=== PATIENT | female | born 1935 | race Caucasian/White ===

== ENCOUNTER 2018-03-18 17:47 | Inpatient (IN) | payer MEDICARE, OTHER ==
--- NOTE | 2018-03-18 17:55 | ED Physician Chart ---
ED Chief Complaint/HPI - Patient Information Date Seen:: 03/18/18 Time Seen:: 17:35 Chief Complaint:: Fever History of Present Illness:: onset x 2 days of fever, poor oral intake, cough, and congestion; no report of trauma, H/As, S/T, neck pain, C/P, SOB, Abd. Pain, A/N/V/D/C, chills, or urinary s/s Allergies:: Allergies Allergy/AdvReac Type Severity Reaction Status Date / Time ciprofloxacin [From Cipro] Allergy Verified 03/18/18 17:50 codeine Allergy Verified 03/18/18 17:50 naproxen Allergy Verified 03/18/18 17:50 tetracycline Allergy Verified 03/18/18 17:50 Historian:: Patient Review:: Nurse's Note Reviewed, Old Chart Reviewed, EMS run form Reviewed ED Review of Systems - Review of Systems General/Constitutional: Fever, No chills, No weight loss, Weakness, No diaphoresis, No edema, No loss of appetite Skin: No skin lesions, No rash, No bruising Head: No headache, No light-headedness Eyes: No loss of vision, No pain, No diplopia ENT: No earache, Nasal drainage, No sore throat, No tinnitus Neck: No neck pain, No swelling, No thyromegaly, No stiffness, No mass noted Cardio Vascular: No chest pain, No palpitations, No PND, No orthopnea, No edema Pulmonary: No SOB, Cough, No sputum, No wheezing GI: No nausea, No vomiting, No diarrhea, No pain, No melena, No hematochezia, No constipation, No hematemesis G/U: No dysuria, No frequency, No hematuria, No nacturia [employer]: No vaginal discharge, No abnormal vaginal bleed, No contraction Musculoskeletal: No bone or joint pain, No back pain, No muscle pain Endocrine: No polyuria, No polydipsia Psychiatric: No prior psych history, No depression, No anxiety, No suicidal ideation, No homicidal ideation, No auditory hallucination, No visual hallucination Hematopoietic: No bruising, No lymphadenopathy Allergic/Immuno: No urticaria, No angioedema Neurological: No syncope, No focal symptoms, Weakness, No paresthesia, No headache, No seizure, No dizziness, Confusion, No vertigo ED Past Medical History - Past Medical History Obtainable: Yes Past Medical History: HTN, Asthma/COPD, Dementia Family History: HTN Social History: Non Smoker, No Alcohol, No Drug Use, , Care Facility Surgical History: None Psychiatricy History: Dementia Medication: Reviewed Family Medical History - Family Member Mother History Unknown: Yes ED Physical Exam - Physical Examination General/Constitutional: Awake, Well-developed, well-nourished, Alert, No distress, GCS 15, Non-toxic appearing, Ambulatory Head: Atraumatic Eyes: Lids, conjuctiva normal, PERRL, EOMI Skin: Nl inspection, No rash, No skin lesions, No ecchymosis, Well hydrated, No lymphadenopathy ENMT: External ears, nose nl, TM canals nl, Nasal exam nl, Lips, teeth, gums nl , Oropharynx nl, Tonsils nl Neck: Nontender, Full ROM w/o pain, No JVD, No nuchal rigidity, No bruit, No mass, No stridor Respiratory: Nl effort/Exclusion, Clear to Auscultation, No Wheeze/Rhonchi/Rales Cardio Vascular: RRR, No murmur, gallop, rubs, NL S1 S2, Carotid/Femoral/Distal pulses equal bilaterally GI: No tenderness/rebounding/guarding, No organomegaly, No hernia, Normal BS's, Nondistended, No mass/bruits, No McBurney tenderness, Rectum exam nl : No CVA tenderness Extremities: No tenderness or effusion, Full ROM, normal strength in all extremities, No edema, Normal digits & nails Neuro/Psych: Alert/oriented, DTR's symmetric, Normal sensory exam, Normal motor strength, Judgement/insight normal, Mood normal, Normal gait, No focal deficits Misc: Normal back, No paraspinal tenderness ED Labs/Radiology/EKG Results - Lab Results Comments:: Reviewed - Radiology Results Comments:: COPD - EKG Interpretations Rate & Rhythm: NSR Comments:: non-specific st-t changes ED Septic Shock - . Is Septic Shock (SBP<90, OR Lactate>4 mmol\L) present?: No ED Reassessment (Disposition) - Reassessment Reassessment Condition:: Improved - Diagnosis Diagnosis:: Poor Oral Intake; Failure to Thrive; fever; Cough; Congestion; Dementia; Dehydration; Sepsis; UTI - Aftercare/Follow up Instructions Aftercare/Follow-Up Instructions:: Counseled pt regarding lab results/diagnosis & need follow up, Counseled pt & family regarding lab results/diagnosis & need follow up - Patient Disposition Discharge/Transfer:: Acute Care w/in this hosp Accepting Physician:: Dr. Nugent Time Called:: 1899 Time Responded:: 19:00 Admitted to:: Telemetry Spoke to:: Dr. Nugent Admitting Medical Physician:: Dr. Nugent Condition at Disposition:: Stable, Improved
[2018-03-18 18:27] LABS: URINE SOURCE MIDSTREAM
[2018-03-18 18:30] LABS: % BASOPHILS 0.5 % (0.0-2.0); % EOSINOPHILS 4.5 % (0.0-5.0); % LYMPHOCYTES 22.9 % (20.0-50.0); % MONOCYTES 13.5 % (2.0-10.0); % NEUTROPHILS 58.6 % (40.0-80.0); EOSINOPHILE ABSOLUTE 0.3 Th/cmm (0.1-0.4); HEMATOCRIT 38.2 % (41.0-60); HEMOGLOBIN 12.3 gm/dL (12-16); LYMPHOCYTE ABSOLUTE 1.7 Th/cmm (1.5-3.0); MEAN CELL VOLUME 81.5 fl (81-100); MEAN CORPUSCULAR HEMOGLOBIN 26.3 pg (27.0-31.0); MEAN CORPUSCULAR HGB CONC 32.3 pg (28.0-36.0); MEAN PLATELET VOLUME 7.7 fl; NEUTROPHILE ABSOLUTE 4.5 Th/cmm (1.8-8.0); PLATELET COUNT 294 Th/cmm (150-400); RED BLOOD COUNT 4.69 Mil/cmm (3.80-5.20); RED CELL DISTRIBUTION WIDTH 16.8 % (11.5-20.0); WHITE BLOOD COUNT 7.5 Th/cmm (4.8-10.8)
[2018-03-18 18:42] LABS: URINE BILIRUBIN NEGATIVE (NEGATIVE); URINE BLOOD NEGATIVE (NEGATIVE); URINE GLUCOSE (UA) NEGATIVE (NEGATIVE); URINE KETONE TRACE mg/dL (NEGATIVE); URINE LEUKOCYTE ESTERASE MODERATE (NEGATIVE); URINE MICROSCOPIC INDICATED? YES; URINE NITRATE NEGATIVE (NEGATIVE); URINE PH 5.5 (4.6 - 8.0); URINE PROTEIN TRACE mg/dL (NEGATIVE); URINE UROBILINOGEN 0.2 E.U./dL (0.2 - 1.0)
[2018-03-18 18:44] LABS: URINE CLARITY CLEAR (CLEAR); URINE COLOR YELLOW
[2018-03-18 18:50] LABS: ALB/GLOB RATIO 1.2 (1.0-1.8); ALBUMIN 3.5 gm/dL (3.7-5.3); ALKALINE PHOSPHATASE 86 U/L (34-104); ANION GAP 10.7 (7.0-16.0); BILIRUBIN,TOTAL 0.2 mg/dL (0.3-1.0); BUN - UREA NITROGEN 30 mg/dL (7-25); CALCIUM SERUM 9.5 mg/dL (8.6-10.3); CARBON DIOXIDE 26.8 mEq/L (21.0-31.0); CHLORIDE 102 mEq/L (98-107); CREATININE - SERUM 0.8 mg/dL (0.6-1.2); CREATININE KINASE 31 U/L (30-223); GLUCOSE 91 mg/dL (70-105); POTASSIUM SERUM 4.5 mEq/L (3.5-5.1); SGOT 16 U/L (13-39); SGPT/ALT 12 U/L (7-52); SODIUM SERUM 135 mEq/L (136-145); TOTAL PROTEIN,SERUM 6.5 gm/dL (6.0-8.3)
[2018-03-18 18:52] LABS: TROP I 0.01 ng/mL (0.01-0.05)
[2018-03-18 18:58] LABS: URINE BACTERIA 1+ /hpf (NONE SEEN); URINE EPITHELIAL CELLS FEW /lpf (FEW); URINE RBC 0-2 /hpf (0-5)
[2018-03-18] MEDS ORDERED: cefTRIAXone 1 GM in Sodium Chloride 0.9% 50 ML IV ONE (19:14)
[2018-03-18 19:31] LABS: INR 0.96 (0.5-1.4)
[2018-03-18 21:48] VITALS: BP 159/84
[2018-03-18] MEDS: Sodium Chloride 0.9% 1,000 ML IV SCH (22:49)
--- NOTE | 2018-03-19 08:24 | Diagnostic Imaging Report ---
Portable chest x-ray HISTORY: Pain The overall heart size is difficult to assess with portable technique, a poor inspiration, and patient rotation. A linear density is seen in the right perihilar region which may be associated with scarring or subsegmental atelectasis. No other focal processes. Atherosclerotic calcification seen through the aorta. IMPRESSION: 1. Linear density within the right perihilar region that may be associated with scarring or subsegmental atelectasis 2. Atherosclerotic vascular changes
[2018-03-19] MEDS ORDERED: Non-Formulary Item 1 EA (Nutritional Supplement [Resource 2.0] 90 ML) PO SCH (09:15)
--- NOTE | 2018-03-19 09:35 | History and Physical ---
History of Present Illness - HPI Chief Complaint: Failure to thrive, poor oral intake. HPI: I follow this patient at a SNF and I received a call stating that patient had 2 days with fever, poor oral intake. Patient was send to ER and was found an UTI. Vital Signs: Last Vital Signs Temp 98.1 F 03/19/18 08:00 Pulse 78 03/19/18 08:00 Resp 17 03/19/18 08:00 BP 133/85 03/19/18 08:00 Pulse Ox 96 03/19/18 08:00 Past Medical History Cardiovascular: Report: CAD, HTN Pulmonary: Report: COPD [employer]: Report: Dementia GI: Report: No Pertinent Hx Psych: Report: No Pertinent Hx Musculoskeletal: Report: Weakness Rheumatologic: Report: No pertinent Hx Infectious Disease: Report: No Pertinent Hx Renal/: Report: No Pertinent Hx Endocrine: Report: No Pertinent Hx Dermatology: Report: No Pertinent Hx Family Medical History - Family Member Mother History Unknown: Yes Social History Smoke: No Alcohol: None Drugs: None Lives: Group Home Domestic Violence: Negative - Medications Home Medications: Home Medication Medication Instructions Recorded Type Acetaminophen [Tylenol] 650 mg PO Q6HR PRN 03/18/18 History Ascorbic Acid [Vitamin C] 500 mg PO DAILY 03/18/18 History Folic Acid [Folate*] 1 mg PO DAILY 03/18/18 History Melatonin 6 mg PO HS 03/18/18 History Memantine [Namenda] 5 mg PO BID 03/18/18 History Multivitamin with Minerals 1 tab PO DAILY 03/18/18 History [Multivitamins with Minerals] Nutritional Supplement [Resource 90 ml PO TID 03/18/18 History 2.0] Sennosides A and B [Senna] 8.6 mg PO HS PRN 03/18/18 History Trazodone HCl 50 mg PO HS PRN 03/18/18 History cefTRIAXone [Rocephin] 1 gm IV Q24HR 4 Days vial 03/20/18 Rx - Allergies Allergies/Adverse Reactions: Allergies Allergy/AdvReac Type Severity Reaction Status Date / Time ciprofloxacin [From Cipro] Allergy Verified 03/18/18 17:50 codeine Allergy Verified 03/18/18 17:50 naproxen Allergy Verified 03/18/18 17:50 tetracycline Allergy Verified 03/18/18 17:50 Review of Systems - Review of Systems Constitutional: Report: Fever, Weakness Eyes: Report: No Significant ENT: Report: No Significant Respiratory: Report: Other (Bilateral decreased air entry) Cardiovascular: Report: No Significant Gastrointestinal: Report: No Significant Genitourinary: Report: No Significant Musculoskeletal: Report: No Significant Skin: Report: No Significant Neurological: Report: Weakness Physical Exam - Physical Exam HEENT: Report: Ears Nose Throat within normal limits Neck: Report: Within normal limits Cardiovascular Systems: Report: Regular, Rate and Rhythm Respiratory: Report: Other (Bilateral decreased air entry) Abdomen: Report: Non-tender to palpation Back: Report: Inspection of back is within normal limits. Extremities: Report: Non-tender to palpation. Skin: Report: Color of skin is within normal limits Neuro/Psych: Report: Disoriented to name time or place - Lab Results All Lab Results last 24 hours: Laboratory Results - last 24 hr 03/18/18 03/18/18 03/18/18 18:20 18:20 18:20 WBC 7.5 RBC 4.69 Hgb 12.3 Hct 38.2 L MCV 81.5 MCH 26.3 L MCHC Differential 32.3 RDW 16.8 Plt Count 294 MPV 7.7 Neutrophils % 58.6 Lymphocytes % 22.9 Monocytes % 13.5 H Eosinophils % 4.5 Basophils % 0.5 PT 10.0 INR 0.96 PTT (Actin FS) 23.0 L Sodium Potassium Chloride Carbon Dioxide Anion Gap BUN Creatinine Est GFR ( Amer) Est GFR (Non-Af Amer) BUN/Creatinine Ratio Glucose Whole Bld Lactic Acid Calcium Total Bilirubin AST ALT Alkaline Phosphatase Creatine Kinase Troponin I B-Natriuretic Peptide Total Protein Albumin Globulin Albumin/Globulin Ratio Urine Source [place] Urine Color YELLOW Urine Clarity CLEAR Urine pH 5.5 Ur Specific [place] 1.025 Urine Protein TRACE Urine Glucose (UA) NEGATIVE Urine Ketones TRACE Urine Blood NEGATIVE Urine Nitrate NEGATIVE Urine Bilirubin NEGATIVE Urine Urobilinogen 0.2 Ur Leukocyte Esterase MODERATE H Urine RBC 0-2 Urine WBC 6-10 H Ur Epithelial Cells FEW Urine Bacteria 1+ H 03/18/18 03/18/18 03/18/18 18:20 18:20 18:20 WBC RBC Hgb Hct MCV MCH MCHC Differential RDW Plt Count MPV Neutrophils % Lymphocytes % Monocytes % Eosinophils % Basophils % PT INR PTT (Actin FS) Sodium 135 L Potassium 4.5 Chloride 102 Carbon Dioxide 26.8 Anion Gap 10.7 BUN 30 H Creatinine 0.8 Est GFR ( Amer) TNP Est GFR (Non-Af Amer) TNP BUN/Creatinine Ratio 37.5 Glucose 91 Whole Bld Lactic Acid 0.91 Calcium 9.5 Total Bilirubin 0.2 L AST 16 ALT 12 Alkaline Phosphatase 86 Creatine Kinase 31 Troponin I 0.01 B-Natriuretic Peptide 61.1 Total Protein 6.5 Albumin 3.5 L Globulin 3.0 Albumin/Globulin Ratio 1.2 Urine Source Urine Color Urine Clarity Urine pH Ur Specific [place] Urine Protein Urine Glucose (UA) Urine Ketones Urine Blood Urine Nitrate Urine Bilirubin Urine Urobilinogen Ur Leukocyte Esterase Urine RBC Urine WBC Ur Epithelial Cells Urine Bacteria - Assessment Assessment: Patient is awake, alert, calm, in no acute distress. Dx: UTI, Failure to thrive , COPD, HTN, Dementia. - Plan Plan: Patient in IV NS, Ceftriaxone, continue with SNF meds. Will continue to monitor.
[2018-03-19] MEDS: Multivitamin w/ Minerals Tab PO SCH (10:05)
[2018-03-19] MEDS: Sodium Chloride 0.9% 1,000 ML IV SCH (10:07)
[2018-03-19] MEDS: Albuterol Nebulizer 2.5mg/3mL HHN SCH ×2 (13:52→19:41)
[2018-03-19] MEDS ORDERED: cefTRIAXone 1 GM in Sodium Chloride 0.9% 50 ML IV SCH (19:30)
[2018-03-20] MEDS: Sodium Chloride 0.9% 1,000 ML IV SCH ×2 (00:38→00:45)
[2018-03-20] MEDS: Albuterol Nebulizer 2.5mg/3mL HHN SCH ×2 (01:40→07:42)
[2018-03-20 05:42] LABS: % BASOPHILS 0.6 % (0.0-2.0); % EOSINOPHILS 2.1 % (0.0-5.0); % LYMPHOCYTES 10.9 % (20.0-50.0); % MONOCYTES 11.6 % (2.0-10.0); % NEUTROPHILS 74.8 % (40.0-80.0); EOSINOPHILE ABSOLUTE 0.2 Th/cmm (0.1-0.4); HEMATOCRIT 34.8 % (41.0-60); HEMOGLOBIN 11.6 gm/dL (12-16); LYMPHOCYTE ABSOLUTE 0.9 Th/cmm (1.5-3.0); MEAN CELL VOLUME 80.7 fl (81-100); MEAN CORPUSCULAR HEMOGLOBIN 26.9 pg (27.0-31.0); MEAN CORPUSCULAR HGB CONC 33.3 pg (28.0-36.0); MEAN PLATELET VOLUME 7.6 fl; NEUTROPHILE ABSOLUTE 6.1 Th/cmm (1.8-8.0); PLATELET COUNT 238 Th/cmm (150-400); RED BLOOD COUNT 4.31 Mil/cmm (3.80-5.20); RED CELL DISTRIBUTION WIDTH 16.6 % (11.5-20.0); WHITE BLOOD COUNT 8.2 Th/cmm (4.8-10.8)
[2018-03-20 05:53] LABS: ALB/GLOB RATIO 1.2 (1.0-1.8); ALBUMIN 3.1 gm/dL (3.7-5.3); ALKALINE PHOSPHATASE 78 U/L (34-104); ANION GAP 11.7 (7.0-16.0); BILIRUBIN,TOTAL 0.2 mg/dL (0.3-1.0); BUN - UREA NITROGEN 14 mg/dL (7-25); CALCIUM SERUM 9.2 mg/dL (8.6-10.3); CARBON DIOXIDE 24.4 mEq/L (21.0-31.0); CHLORIDE 103 mEq/L (98-107); CREATININE - SERUM 0.6 mg/dL (0.6-1.2); GLUCOSE 90 mg/dL (70-105); POTASSIUM SERUM 4.1 mEq/L (3.5-5.1); SGOT 16 U/L (13-39); SGPT/ALT 10 U/L (7-52); SODIUM SERUM 135 mEq/L (136-145); TOTAL PROTEIN,SERUM 5.8 gm/dL (6.0-8.3)
--- NOTE | 2018-03-20 08:46 | Discharge Summary ---
General Discharge Summary - Discharge Summary Date of Admission: 03/18/18 Admitting Diagnosis: UTI, Failure to thrieve Discharge Date: 03/20/18 Discharge Diagnosis: UTI, Poor oral intake, COPD, HTN, Dementia Laboratory Findings: Laboratory Results - last 24 hr 03/20/18 03/20/18 05:00 05:00 WBC 8.2 RBC 4.31 Hgb 11.6 L Hct 34.8 L MCV 80.7 L MCH 26.9 L MCHC Differential 33.3 RDW 16.6 Plt Count 238 MPV 7.6 Neutrophils % 74.8 Lymphocytes % 10.9 L Monocytes % 11.6 H Eosinophils % 2.1 Basophils % 0.6 Sodium 135 L Potassium 4.1 Chloride 103 Carbon Dioxide 24.4 Anion Gap 11.7 BUN 14 Creatinine 0.6 Est GFR ( Amer) TNP Est GFR (Non-Af Amer) TNP BUN/Creatinine Ratio 23.3 Glucose 90 Calcium 9.2 Total Bilirubin 0.2 L AST 16 ALT 10 Alkaline Phosphatase 78 Total Protein 5.8 L Albumin 3.1 L Globulin 2.7 Albumin/Globulin Ratio 1.2 Hospital Course: Patient was hospitalized and responded to treatment, patient improved . Treatment: Patient was started in IV NS, Ceftriaxone, continue with SNF meds. Disposition: Discharge/Transfered to SNF Home Medications: Home Medication Medication Instructions Recorded Type Acetaminophen [Tylenol] 650 mg PO Q6HR PRN 03/18/18 History Ascorbic Acid [Vitamin C] 500 mg PO DAILY 03/18/18 History Folic Acid [Folate*] 1 mg PO DAILY 03/18/18 History Melatonin 6 mg PO HS 03/18/18 History Memantine [Namenda] 5 mg PO BID 03/18/18 History Multivitamin with Minerals 1 tab PO DAILY 03/18/18 History [Multivitamins with Minerals] Nutritional Supplement [Resource 90 ml PO TID 03/18/18 History 2.0] Sennosides A and B [Senna] 8.6 mg PO HS PRN 03/18/18 History Trazodone HCl 50 mg PO HS PRN 03/18/18 History cefTRIAXone [Rocephin] 1 gm IV Q24HR 4 Days vial 03/20/18 Rx Inpatient Medications: Current Medications Acetaminophen (Tylenol) 650 mg PO Q6H PRN PRN Reason: pain/headache/fever 101 Stop: 05/18/18 03:10 Last Admin: 03/19/18 03:19 Dose: 650 mg Albuterol Sulfate (Albuterol 2.5mg/3ml Neb Ud) 2.5 mg HHN Q6HRT [facility] Stop: 05/18/18 12:59 Last Admin: 03/20/18 07:42 Dose: 2.5 mg Ascorbic Acid (Vitamin C) 500 mg PO DAILY [facility] Stop: 05/18/18 09:14 Last Admin: 03/19/18 10:05 Dose: 500 mg Folic Acid (Folate) 1 mg PO DAILY [facility] Stop: 05/18/18 09:14 Last Admin: 03/19/18 10:05 Dose: 1 mg Ceftriaxone Sodium 1 gm/ (Sodium Chloride) 50 mls @ 100 mls/hr IV Q24HR [facility] Stop: 03/25/18 19:59 Last Admin: 03/19/18 18:44 Dose: 100 mls/hr Sodium Chloride (Nacl 0.9%) 1,000 mls @ 80 mls/hr IV .[id number] [facility] Stop: 05/17/18 19:28 Last Admin: 03/20/18 00:45 Dose: Not Given Memantine (Namenda) 5 mg PO BID [facility] Stop: 05/18/18 09:14 Last Admin: 03/19/18 17:34 Dose: 5 mg Senna (Senna) 8.6 mg PO HS PRN PRN Reason: Constipation Stop: 05/18/18 09:13 Trazodone HCl (Desyrel) 50 mg PO HS PRN; Protocol PRN Reason: Insomnia Stop: 05/18/18 09:13 Prescriptions: cefTRIAXone [Rocephin] 1 gm IV Q24HR 4 Days vial Consults and Follow-Up: Manohar Nugent [Primary Care Provider] - Instructions: Failure to Thrive, Urinary Tract Infection, [id number], Sepsis , Adult
[2018-03-20] MEDS: Multivitamin w/ Minerals Tab PO SCH (09:52)
== END 2018-03-20 12:45 | DRG 872 ==
LOC: ER 17:47 → MSI 19:20
PROVIDERS: ADMIT General Practice; ATTEND General Practice
DX: A41.9 Sepsis, unspecified organism (principal); N39.0 Urinary tract infection, site not specified; R62.7 Adult failure to thrive; J44.9 Chronic obstructive pulmonary disease, unspecified; F03.90 Unspecified dementia, unspecified severity, without behavioral disturbance, psychotic disturbance, mood disturbance, and anxiety; I10 Essential (primary) hypertension; E86.0 Dehydration; I25.10 Atherosclerotic heart disease of native coronary artery without angina pectoris; Z79.899 Other long term (current) drug therapy; Z88.1 Allergy status to other antibiotic agents; Z88.5 Allergy status to narcotic agent; Z82.49 Family history of ischemic heart disease and other diseases of the circulatory system; Z88.8 Allergy status to other drugs, medicaments and biological substances
CPT/HCPCS: 36415-UA; 71045-TC; 80053-TC; 81001-TC; 82550-TC; 83605; 83880-TC; 84484-TC; 85025-TC; 85610-TC; 85730-TC; 93005; 94640; 94760; 96374; J0696; J7613; Z7610